=== PATIENT | male | born 1975 | race Hispanic/Latino ===

== ENCOUNTER 2017-09-25 10:26 | Emergency (ER) | payer OTHER ==
[2017-09-25 10:53] VITALS: BP 138/74; PULSE 69; RESP 19; TEMP 97.4; O2SAT 98
[2017-09-25] MEDS ORDERED: Oxycodone/Acetaminophen 5/325 mg Tab PO STA (11:40)
--- NOTE | 2017-09-25 11:41 | ED PDOC ---
HPI: Back Time Seen by Provider: 09/25/17 11:08 Chief Complaint (Nursing): Back Pain Chief Complaint (Provider): Back Pain History Per: Patient Additional Complaint(s): 42 yo male, no PMH, presents to ED c.o pain to back after working out at a gym. was seen at an [facility] yesterday. was given toradol on site and RX for Naproxen, Flexeril and Prednisone PO. Pt reports no relief obtained. no bowel or bladder dysfunction. Past Medical History Reviewed: Historical Data, Nursing Documentation, Vital Signs Vital Signs: Last Vital Signs Temp 97.4 F L 09/25/17 10:52 Pulse 69 09/25/17 10:52 Resp 19 09/25/17 10:52 BP 138/74 09/25/17 10:52 Pulse Ox 98 09/25/17 10:52 - Medical History PMH: No Chronic Diseases - Surgical History Surgical History: No Surg Hx - Family History Family History: States: Unknown Family Hx Other Family History: non contributory - Living Arrangements Living Arrangements: With Family - Social History Current smoker - smoking cessation education provided: No Alcohol: Social - Home Medications Home Medications: Ambulatory Orders Medication Instructions Recorded Lidocaine 1 each TP Q12 #12 adh..patch 09/25/17 oxyCODONE/Acetaminophen [Percocet 1 ea PO Q6 PRN #10 tab 09/25/17 5/325 mg Tab] - Allergies Allergies/Adverse Reactions: Allergies Allergy/AdvReac Type Severity Reaction Status Date / Time No Known Allergies Allergy Verified 11/26/15 21:04 Review of Systems ROS Statement: Except As Marked, All Systems Reviewed And Found Negative Musculoskeletal: Positive for: Back Pain Physical Exam - Reviewed Nursing Documentation Reviewed: Yes Vital Signs Reviewed: Yes - Physical Exam Appears: Positive for: Well, Non-toxic, No Acute Distress Head Exam: Positive for: ATRAUMATIC, NORMAL INSPECTION, NORMOCEPHALIC Skin: Positive for: Normal Color, Warm, DRY Eye Exam: Positive for: EOMI, Normal appearance, PERRL ENT: Positive for: Normal ENT Inspection Neck: Positive for: Normal, Painless ROM Cardiovascular/Chest: Positive for: Regular Rate, Rhythm Respiratory: Positive for: CNT, Normal Breath Sounds Gastrointestinal/Abdominal: Positive for: Normal Exam, Bowel Sounds, Soft Back: Positive for: Normal Inspection, Muscle Spasm (LS paraspinal). Negative for: Vertebral Tenderness Extremity: Positive for: Normal ROM Neurologic/Psych: Positive for: Alert, Oriented - ECG O2 Sat by Pulse Oximetry: 98 Medical Decision Making Medical Decision Making: Medicated with Percocet PO Imaging studies not clinically indicated at this time Disposition - Clinical Impression Clinical Impression: Back pain - Patient ED Disposition Is Patient to be Admitted: No - Disposition Referrals: Frank Colindres MD [Medical Doctor] - Disposition: Routine/Home Disposition Time: 13:17 Condition: STABLE Prescriptions: Lidocaine 1 each TP Q12 #12 adh..patch oxyCODONE/Acetaminophen [Percocet 5/325 mg Tab] 1 ea PO Q6 PRN #10 tab PRN Reason: Pain, Severe (8-10) Instructions: Back Pain (ED) Forms: [facility] ([place])
[2017-09-25] MEDS ORDERED: Oxycodone/Acetaminophen 5/325 mg Tab ONE (11:43)
== END 2017-09-25 12:30 | disposition home or self-care (01) ==
LOC: H.ER 10:26
DX: M54.9 Dorsalgia, unspecified (principal)